=== PATIENT | male | born 1940 | race Caucasian/White ===

== ENCOUNTER 2017-11-05 17:27 | Inpatient (IN) | payer OTHER ==
[~2017-11-05] VITALS: Ht 175.3 cm; Wt 87.2 kg
[~2017-11-05 17:27] MED LIST: ALLOPURINOL100 MG PO; APRESOLINE25 MG PO; ASPIRIN81 M2 PO; ATIVAN0.5 MG PO; BENEPROTEIN227 GM PO; CALCITRIOL0.25 MCG PO; CELEXA40 MG PO; CLOBETASOL PROP60 G1 TP; CLONAZEPAM1 MG PO; COLCHICINE0.6 M1 PO; CYANOCOBALAM1000 MCG PO; DOXYCYCLINE HY100 MG PO; DUONEB 2.5-0.5 M3 ML PEP; FLEXERIL5 MG PO; FUROSEMIDE80 MG PO; GENTAMICIN SULF30 G1 TP; HUMALOG100 UNIT/2 SC; HYDRALAZINE HCL50 MG PO; IRON325 M1 PO; IRON325 MG PO; LANTUS 3 M100 UNITS1 SC; LIDOCAINE700 MG TD; LOPRESSOR100 M1 PO; LORAZEPAM0.5 MG PO; METOPROLOL PO; METOPROLOL TART50 MG PO; MULTIPLE VITAM1 EACH PO; NAMENDA5 MG PO; NEPHRO-VITE,1 TABLET PO; NITROSTAT0.4 MG SL; NORCO 5/3251 TABLET PO; NYSTATIN-TRIAMC15 GM TP; ONDANSETRON HCL4 MG PO; OXYCODONE HCL5 MG PO; OXYCONTIN10 MG PO; PANTOPRAZOLE SO40 MG PO; PLAVIX75 MG PO; TRAMADOL HCL50 MG PO; TRIAMCINOLONE A15 GM TP; VITAMIN B12-FO1 EACH PO; VITAMIN D31000 UNIT PO; VITAMIN D32000 UNI1 PO; VITAMIN D32000 UNIT PO
[2017-11-05 20:00] LABS: BASOPHIL (%) 0.1 % (0-1); EOSINOPHIL (%) 0.3 % (0-5); EOSINOPHIL COUNT 0.1 K/uL (0-0.3); HEMATOCRIT 31.2 % (38.0-50.0); HEMOGLOBIN 10.4 G/DL (12.5-16.6); IMMATURE GRANULOCYTE (%) 0.7 % (0.0-0.7); LYMPHOCYTE (%) 13.4 % (15-42); LYMPHOCYTE COUNT 2.2 K/uL (1.0-2.8); MCH 36.2 PG (29.0-34.0); MCHC 33.3 G/DL (30.0-36.0); MCV 108.7 FL (86-99); MONOCYTE (%) 5.1 % (3-12); MONOCYTE COUNT 0.8 K/uL (0-0.8); NEUTROPHIL (%) 80.4 % (45-76); NRBC (%) 0.2 /100 WBC (0-0); PLATELET COUNT 202 K/uL (156-360); RBC DIS.WIDTH-CV 18.2 % (11.8-14.6); RBC DIS.WIDTH-SD 72.2 % (39-53); RED BLOOD COUNT 2.87 M/uL (4.00-5.50); WHITE BLOOD COUNT 16.2 K/uL (4.1-10.2)
[2017-11-05 20:14] LABS: CHLORIDE 105 mEq/L (99-109); POTASSIUM 5.3 mEq/L (3.7-5.4); SODIUM 139 mEq/L (136-147)
[2017-11-05 20:16] LABS: GLUCOSE 113 mg/dL (70-99)
[2017-11-05 20:19] LABS: CREATININE 5.5 mg/dL (0.6-1.3); GFR ESTIMATE (CALCULATED) 11 mL/min/ (58.99-99999); SERUM ETHYL ALCOHOL < 10 mg/dL
[2017-11-05 20:20] LABS: UREA NITROGEN (BUN) 47 mg/dL (9-23)
[2017-11-05] MEDS ORDERED: IMDUR60 MG PO (21:50)
[2017-11-05] MEDS ORDERED: FLONASE16 G1 BOTH NARES (21:51)
[2017-11-05] MEDS ORDERED: CALCITRIOL0.25 MCG PO (21:53)
[2017-11-05 22:14] LABS: ALBUMIN 3.6 g/dL (3.2-4.8)
[2017-11-05 22:15] LABS: INTER. NORMALIZED RATIO 1.1
[2017-11-05 22:17] LABS: TOTAL PROTEIN 6.1 g/dL (6.4-8.3)
[2017-11-05 22:19] LABS: TOTAL BILIRUBIN 0.5 mg/dL (0.0-1.0)
[2017-11-05 22:20] LABS: ALKALINE PHOSPHATASE 79 IU/L (3-129)
[2017-11-05 22:22] LABS: AST (GOT) 14 IU/L (2-34); DIRECT BILIRUBIN 0.2 mg/dL (0.0-0.3)
[2017-11-05 22:23] LABS: ALT (GPT) 9 IU/L (3-49)
[2017-11-05 22:25] LABS: TROP-I INTERPRETATION NEGATIVE; TROPONIN-I 0.26 ng/mL (0.0-0.30)
[2017-11-06] VITALS (7 sets, daily range): BP systolic 98–146; BP diastolic 53–67
[2017-11-06 03:47] LABS: TROP-I INTERPRETATION NEGATIVE; TROPONIN-I 0.24 ng/mL (0.0-0.30)
[2017-11-06 09:39] LABS: HEMATOCRIT 30.2 % (38.0-50.0); MCHC 33.1 G/DL (30.0-36.0); MCV 111.9 FL (86-99); NRBC (%) 0.2 /100 WBC (0-0); PLATELET COUNT 165 K/uL (156-360); RBC DIS.WIDTH-CV 18.2 % (11.8-14.6); RBC DIS.WIDTH-SD 73.6 % (39-53); WHITE BLOOD COUNT 8.6 K/uL (4.1-10.2)
[2017-11-06 09:59] LABS: TROP-I INTERPRETATION NEGATIVE; TROPONIN-I 0.24 ng/mL (0.0-0.30)
[2017-11-06 16:33] LABS: ALBUMIN 3.5 G/DL (3.2-4.8); CHLORIDE 106 MEQ/L (99-109); POTASSIUM 5.3 MEQ/L (3.7-5.4); SODIUM 140 MEQ/L (136-147)
[2017-11-06 16:39] LABS: CREATININE 6.3 MG/DL (0.6-1.3); GFR ESTIMATE (CALCULATED) 9 mL/min/ (58.99-99999); GLUCOSE 94 mg/dL (70-99); PHOSPHORUS 7.5 mg/dL (2.5-4.9); UREA NITROGEN (BUN) 51 mg/dL (9-23)
[2017-11-07 01:36] LABS: APPEARANCE CLEAR ((CLEAR)); COLOR YELLOW ((YELLOW)); LEUKOCYTES NEGATIVE; NITRITE NEGATIVE
[2017-11-07 01:37] LABS: BILIRUBIN NEGATIVE; BLOOD NEGATIVE; GLUCOSE (STRIP) NEGATIVE; KETONES NEGATIVE; PH, URINE 6 (5-8); PROTEIN (STRIP) 300; UROBILINOGEN 0.2 MG/DL (0.2-1.0)
[2017-11-07 01:45] VITALS: BP 135/69
[2017-11-07 02:04] LABS: BACTERIA NONE SEEN /HPF; EPITHELIAL CELLS RARE /HPF; MUCUS NONE SEEN /LPF; RED BLOOD CELLS NONE SEEN /HPF (0-5); UCUL ADDED? NO; WHITE BLOOD CELLS RARE /HPF (0-5)
[2017-11-07 02:39] VITALS: BP 139/56
[2017-11-07 05:28] LABS: HEMATOCRIT 31.5 % (38.0-50.0); HEMOGLOBIN 10.3 G/DL (12.5-16.6); MCH 36.4 PG (29.0-34.0); MCHC 32.7 G/DL (30.0-36.0); MCV 111.3 FL (86-99); NRBC (%) 0.5 /100 WBC (0-0); PLATELET COUNT 170 K/uL (156-360); RBC DIS.WIDTH-SD 74.8 % (39-53); RED BLOOD COUNT 2.83 M/uL (4.00-5.50); WHITE BLOOD COUNT 10.6 K/uL (4.1-10.2)
[2017-11-07 05:56] LABS: ALBUMIN 3.6 G/DL (3.2-4.8); CHLORIDE 102 MEQ/L (99-109); CREATININE 6.6 MG/DL (0.6-1.3); GFR ESTIMATE (CALCULATED) 9 mL/min/ (58.99-99999); GLUCOSE 135 mg/dL (70-99); IRON 33 MCG/DL (35-150); PHOSPHORUS 7.3 mg/dL (2.5-4.9); POTASSIUM 4.9 MEQ/L (3.7-5.4); SODIUM 139 MEQ/L (136-147); TRANSFERRIN (TIBC) 144.6 mg/dL (215-380); TRANSFERRIN SATUR. 23 % (20-55); UREA NITROGEN (BUN) 54 mg/dL (9-23)
[2017-11-07 08:05] VITALS: BP 124/58
[2017-11-07 10:53] LABS: HEMATOCRIT 30.5 % (38.0-50.0); HEMOGLOBIN 9.9 G/DL (12.5-16.6); MCH 36.1 PG (29.0-34.0); MCHC 32.5 G/DL (30.0-36.0); MCV 111.3 FL (86-99); NRBC (%) 0.2 /100 WBC (0-0); PLATELET COUNT 162 K/uL (156-360); RBC DIS.WIDTH-SD 73.8 % (39-53); RED BLOOD COUNT 2.74 M/uL (4.00-5.50); WHITE BLOOD COUNT 21.2 K/uL (4.1-10.2)
[2017-11-07 13:20] VITALS: BP 114/55
[2017-11-07 15:50] VITALS: BP 112/55
[2017-11-07 19:28] VITALS: BP 107/55
[2017-11-08] VITALS (22 sets, daily range): BP systolic 63–103; BP diastolic 34–58
[2017-11-08 06:05] LABS: HEMATOCRIT 27.8 % (38.0-50.0); HEMOGLOBIN 9.3 G/DL (12.5-16.6); MCH 36.3 PG (29.0-34.0); MCHC 33.5 G/DL (30.0-36.0); MCV 108.6 FL (86-99); NRBC (%) 0.4 /100 WBC (0-0); PLATELET COUNT 176 K/uL (156-360); RBC DIS.WIDTH-SD 71.3 % (39-53); RED BLOOD COUNT 2.56 M/uL (4.00-5.50); WHITE BLOOD COUNT 17.3 K/uL (4.1-10.2)
[2017-11-08 06:17] LABS: ALBUMIN 3.3 G/DL (3.2-4.8); CHLORIDE 99 MEQ/L (99-109); CREATININE 7.4 MG/DL (0.6-1.3); GFR ESTIMATE (CALCULATED) 8 mL/min/ (58.99-99999); GLUCOSE 179 mg/dL (70-99); PHOSPHORUS 8.2 mg/dL (2.5-4.9); POTASSIUM 4.7 MEQ/L (3.7-5.4); SODIUM 140 MEQ/L (136-147); UREA NITROGEN (BUN) 63 mg/dL (9-23)
[2017-11-08 06:24] LABS: TROP-I INTERPRETATION POSITIVE; TROPONIN-I 17.15 ng/mL (0.0-0.30)
[2017-11-08 10:41] LABS: TROPONIN-I 19.35 ng/mL (0.0-0.30)
[2017-11-08 10:42] LABS: TROP-I INTERPRETATION POSITIVE
[2017-11-08 14:21] LABS: TROP-I INTERPRETATION POSITIVE; TROPONIN-I 19.72 ng/mL (0.0-0.30)
[2017-11-08 16:40] LABS: TROP-I INTERPRETATION POSITIVE; TROPONIN-I 18.94 ng/mL (0.0-0.30)
[2017-11-08 21:04] LABS: BASOPHIL (%) 0.1 % (0-1); EOSINOPHIL (%) 0.1 % (0-5); LYMPHOCYTE (%) 9.3 % (15-42); LYMPHOCYTE COUNT 1.3 K/uL (1.0-2.8); MCH 35.4 PG (29.0-34.0); MCV 110.6 FL (86-99); MONOCYTE (%) 5.8 % (3-12); MONOCYTE COUNT 0.8 K/uL (0-0.8); NEUTROPHIL (%) 83.7 % (45-76); PLATELET COUNT 159 K/uL (156-360); RBC DIS.WIDTH-CV 18.7 % (11.8-14.6); RBC DIS.WIDTH-SD 75.2 % (39-53); RED BLOOD COUNT 2.26 M/uL (4.00-5.50); WHITE BLOOD COUNT 14.3 K/uL (4.1-10.2)
[2017-11-08 21:47] LABS: TROP-I INTERPRETATION POSITIVE; TROPONIN-I 20.79 ng/mL (0.0-0.30)
[2017-11-09] VITALS (30 sets, daily range): BP systolic 79–120; BP diastolic 40–74
[2017-11-09 03:55] LABS: HEMATOCRIT 23.6 % (38.0-50.0); HEMOGLOBIN 7.8 G/DL (12.5-16.6); MCH 36.3 PG (29.0-34.0); MCHC 33.1 G/DL (30.0-36.0); MCV 109.8 FL (86-99); NRBC (%) 0.9 /100 WBC (0-0); PLATELET COUNT 166 K/uL (156-360); RBC DIS.WIDTH-CV 18.3 % (11.8-14.6); RBC DIS.WIDTH-SD 73.1 % (39-53); RED BLOOD COUNT 2.15 M/uL (4.00-5.50); WHITE BLOOD COUNT 16.4 K/uL (4.1-10.2)
[2017-11-09 04:17] LABS: TROP-I INTERPRETATION POSITIVE
[2017-11-09 04:19] LABS: TROPONIN-I 20.38 ng/mL (0.0-0.30)
[2017-11-09 15:35] LABS: TROP-I INTERPRETATION POSITIVE; TROPONIN-I 28.18 ng/mL (0.0-0.30)
[2017-11-09 15:46] LABS: HEMOGLOBIN 8.1 G/DL (12.5-16.6); MCH 34.8 PG (29.0-34.0); MCHC 32.4 G/DL (30.0-36.0); MCV 107.3 FL (86-99); NRBC (%) 0.7 /100 WBC (0-0); PLATELET COUNT 121 K/uL (156-360); RBC DIS.WIDTH-CV 20.8 % (11.8-14.6); RBC DIS.WIDTH-SD 80.1 % (39-53); RED BLOOD COUNT 2.33 M/uL (4.00-5.50); WHITE BLOOD COUNT 10.9 K/uL (4.1-10.2)
[2017-11-09 15:56] LABS: ALBUMIN 2.9 G/DL (3.2-4.8); ALKALINE PHOSPHATASE 90 IU/L (3-129); ALT (GPT) 155 IU/L (3-49); AST (GOT) 798 IU/L (2-34); CHLORIDE 102 MEQ/L (99-109); CREATININE 8.2 MG/DL (0.6-1.3); GFR ESTIMATE (CALCULATED) 7 mL/min/ (58.99-99999); GLUCOSE 148 mg/dL (70-99); MAGNESIUM 1.7 mg/dl (1.3-2.7); POTASSIUM 5.6 MEQ/L (3.7-5.4); SODIUM 137 MEQ/L (136-147); TOTAL PROTEIN 4.9 G/DL (6.4-8.3); UREA NITROGEN (BUN) 79 mg/dL (9-23)
[2017-11-09 15:57] LABS: HIGH-SENS C-REACTIVE PROTEIN > 8.00 MG/DL (0.02-0.20)
[2017-11-09 19:28] LABS: TROP-I INTERPRETATION POSITIVE; TROPONIN-I 29.31 ng/mL (0.0-0.30)
[2017-11-10] VITALS (35 sets, daily range): BP systolic 72–123; BP diastolic 40–67
[2017-11-10 00:59] LABS: TROP-I INTERPRETATION POSITIVE
[2017-11-10 01:03] LABS: TROPONIN-I 28.87 ng/mL (0.0-0.30)
[2017-11-10 01:34] LABS: HEMATOCRIT 23.8 % (38.0-50.0); HEMOGLOBIN 8.2 G/DL (12.5-16.6); MCV 103.9 FL (86-99)
[2017-11-10 07:54] LABS: COMMENTS - BLOOD GASES A+C+; DEVICE NC; MECHANICAL RATE 22 resp/min; O2 FLOW 4 L/MIN; PCO2 34 mm Hg (35-45); PO2 92 mm Hg (80-100); SITE LR
[2017-11-10 07:55] LABS: BASE EXCESS -9.4 mEq/L (-3 to +3); BICARBONATE 16.3 mEq/L (22-26); CARBOXY HGB 2.4 % (0-5); METHEMOGLOBIN 1.5 % (0-1.5); pH 7.29 (7.35-7.45)
[2017-11-10 08:30] LABS: HEMOGLOBIN 8.8 G/DL (12.5-16.6); MCH 33.6 PG (29.0-34.0); MCHC 32.6 G/DL (30.0-36.0); MCV 103.1 FL (86-99); NRBC (%) 1.4 /100 WBC (0-0); PLATELET COUNT 116 K/uL (156-360); RBC DIS.WIDTH-CV 22.6 % (11.8-14.6); RBC DIS.WIDTH-SD 83.7 % (39-53); RED BLOOD COUNT 2.62 M/uL (4.00-5.50)
[2017-11-10 08:35] LABS: INTER. NORMALIZED RATIO 1.4
[2017-11-10 08:37] LABS: PTT 60.5 SEC (25-37)
[2017-11-10 08:38] LABS: BASOPHIL (%) 0.2 % (0-1); EOSINOPHIL (%) 0.5 % (0-5); EOSINOPHIL COUNT 0.1 K/uL (0-0.3); IMMATURE GRANULOCYTE (%) 0.8 % (0.0-0.7); LYMPHOCYTE (%) 12.3 % (15-42); LYMPHOCYTE COUNT 1.2 K/uL (1.0-2.8); MONOCYTE (%) 5.6 % (3-12); MONOCYTE COUNT 0.6 K/uL (0-0.8); NEUTROPHIL (%) 80.6 % (45-76)
[2017-11-10 09:03] LABS: ALBUMIN 2.8 G/DL (3.2-4.8); ALT (GPT) 31 IU/L (3-49); AST (GOT) 698 IU/L (2-34); CHLORIDE 101 MEQ/L (99-109); CREATININE 8.8 MG/DL (0.6-1.3); GFR ESTIMATE (CALCULATED) 6 mL/min/ (58.99-99999); GLUCOSE 129 mg/dL (70-99); MAGNESIUM 1.7 mg/dl (1.3-2.7); POTASSIUM 5.1 MEQ/L (3.7-5.4); SODIUM 137 MEQ/L (136-147); TOTAL BILIRUBIN 1.2 MG/DL (0.0-1.0); UREA NITROGEN (BUN) 81 mg/dL (9-23)
[2017-11-10 09:09] LABS: HIGH-SENS C-REACTIVE PROTEIN > 8.00 MG/DL (0.02-0.20)
[2017-11-10 09:10] LABS: ALKALINE PHOSPHATASE 126 IU/L (3-129)
[2017-11-10 10:07] LABS: TROP-I INTERPRETATION POSITIVE; TROPONIN-I 27.87 ng/mL (0.0-0.30)
[2017-11-10 18:57] LABS: TYPE OF FLUID PD FLUID
[2017-11-10 19:30] LABS: FOLIC ACID (FOLATE) > 22.0 NG/ML (5.0-22.0)
[2017-11-10 19:52] LABS: APPEARANCE CLEAR, COLORLESS; BODY FLUID RBC'S 28 /MM^3 (0-100)
[2017-11-10 19:52] LABS: RETIC HGB EQUIVALENT 32.7 (28-36); RETICULOCYTE COUNT 1.5 % (0.5-1.8)
[2017-11-10 19:53] LABS: BODY FLUID WBC'S 34 /MM^3 (0-500)
[2017-11-10 21:02] LABS: BODY FLUID EOSINOPHILS 0 % (0-25); MONONUCLEAR WBC'S 52 %; POLYNUCLEAR WBC'S 48 % (0-25)
[2017-11-11] VITALS (8 sets, daily range): BP systolic 60–109; BP diastolic 37–61
[2017-11-11 05:28] LABS: HEMATOCRIT 29.7 % (38.0-50.0); HEMOGLOBIN 9.4 G/DL (12.5-16.6); MCH 34.1 PG (29.0-34.0); MCHC 31.6 G/DL (30.0-36.0); NRBC (%) 4.3 /100 WBC (0-0); PLATELET COUNT 127 K/uL (156-360); RBC DIS.WIDTH-CV 22.9 % (11.8-14.6); RBC DIS.WIDTH-SD 89.5 % (39-53); RED BLOOD COUNT 2.76 M/uL (4.00-5.50); WHITE BLOOD COUNT 27.1 K/uL (4.1-10.2)
[2017-11-11 05:29] LABS: MCV 107.6 FL (86-99)
[2017-11-11 05:47] LABS: ALBUMIN 2.9 G/DL (3.2-4.8); ALKALINE PHOSPHATASE 141 IU/L (3-129); CHLORIDE 95 MEQ/L (99-109); CREATININE 9.2 MG/DL (0.6-1.3); GFR ESTIMATE (CALCULATED) 6 mL/min/ (58.99-99999); SODIUM 132 MEQ/L (136-147); TOTAL PROTEIN 4.9 G/DL (6.4-8.3); UREA NITROGEN (BUN) 90 mg/dL (9-23); VANCOMYCIN, TROUGH 10.4 MCG/ML (10-20)
[2017-11-11 05:48] LABS: GLUCOSE 207 mg/dL (70-99)
[2017-11-11 05:49] LABS: ALT (GPT) 275 IU/L (3-49); TOTAL BILIRUBIN 0.9 MG/DL (0.0-1.0)
[2017-11-11 05:59] LABS: AST (GOT) 2073 IU/L (2-34)
[2017-11-11 06:08] LABS: HEMOGLOBIN 8.8 G/DL (12.5-16.6); MCH 34.5 PG (29.0-34.0); MCHC 32.6 G/DL (30.0-36.0); MCV 105.9 FL (86-99); NRBC (%) 10.7 /100 WBC (0-0); RBC DIS.WIDTH-CV 22.8 % (11.8-14.6); RBC DIS.WIDTH-SD 88.2 % (39-53); RED BLOOD COUNT 2.55 M/uL (4.00-5.50); WHITE BLOOD COUNT 24.4 K/uL (4.1-10.2)
[2017-11-11 06:12] LABS: ABS NEUTROPHIL COUNT 22.2; ANISOCYTOSIS 2+; ATYPICAL LYMPHOCYTE 1.8 %; BAND NEUTROPHILS 2.7 % (0-8.0); BASOPHILS 0.9 %; BURR CELLS 2+; EOSINOPHIL ABS CT 0; GIANT PLATELETS 1+; LYMPHOCYTES 3.7 % (15.0-45.0); MACROCYTES 2+; MONOCYTES 8.2 % (0-9.0); MYELOCYTES 3.6 %; NUCLEATED RBC'S 6.4; PLAT.SUFFICIENCY DECREASED; POIKILOCYTOSIS 2+; POLYCHROMASIA 3+; SEG.NEUTROPHILS 79.1 % (46.0-76.0)
[2017-11-11 06:14] LABS: INTER. NORMALIZED RATIO 2.2
[2017-11-11 06:17] LABS: PTT 76.9 SEC (25-37)
[2017-11-11 06:19] LABS: CHLORIDE 98 mEq/L (99-109)
[2017-11-11 06:21] LABS: GLUCOSE 164 mg/dL (70-99)
[2017-11-11 06:22] LABS: SODIUM 142 mEq/L (136-147)
[2017-11-11 06:25] LABS: GFR ESTIMATE (CALCULATED) 6 mL/min/ (58.99-99999); PHOSPHORUS 14.6 mg/dL (2.5-4.9)
[2017-11-11 06:26] LABS: UREA NITROGEN (BUN) 83 mg/dL (9-23)
[2017-11-11 06:28] LABS: CARBOXY HGB 1.5 % (0-5); METHEMOGLOBIN 1.1 % (0-1.5); O2 SATURATION (CALCULATED) 99.8 % (95-99); PCO2 54 mm Hg (35-45); PO2 217 mm Hg (80-100); pH 6.91 (7.35-7.45)
[2017-11-11 06:29] LABS: BASE EXCESS -21.3 mEq/L (-3 to +3); BICARBONATE 10.8 mEq/L (22-26); DEVICE RES BAG; FI02 100 %; SITE LB
[2017-11-11 06:34] LABS: TROP-I INTERPRETATION POSITIVE; TROPONIN-I 16.28 ng/mL (0.0-0.30)
[2017-11-11 06:36] LABS: POTASSIUM 6.8 mEq/L (3.7-5.4)
[2017-11-11 07:03] LABS: ABS NEUTROPHIL COUNT 19.9; ANISOCYTOSIS 2+; BAND NEUTROPHILS 6.6 % (0-8.0); BURR CELLS 1+; EOSINOPHIL ABS CT 0.1; EOSINOPHILS 0.4 % (0-5.0); LYMPHOCYTES 10.9 % (15.0-45.0); MACROCYTES 2+; METAMYELOCYTES 1.3 %; MONOCYTES 5.3 % (0-9.0); MYELOCYTES 0.4 %; NUCLEATED RBC'S 10.9; OVALOCYTES 1+; PLAT.SUFFICIENCY DECREASED; POIKILOCYTOSIS 2+; POLYCHROMASIA 2+; SEG.NEUTROPHILS 75.1 % (46.0-76.0)
[2017-11-11 07:05] LABS: PLATELET COUNT UNABLE TO REPORT K/uL (156-360)
== END 2017-11-11 06:37 | DRG 480 ==
LOC: EME 17:27 → ENRESERV 21:26 → 4EAST 21:26 → EDOF 21:26 → 4WEST 21:26 → ENRESERV 21:59 → 4EAST 11-06 01:25 → ENRESERV 11-08 16:56 → 4WEST 11-08 16:58
PROVIDERS: Emergency Medicine; Family Medicine; Internal Medicine; Internal Medicine Cardiovascular Disease; Internal Medicine Nephrology; Nurse Practitioner Family; Obstetrics & Gynecology; Orthopaedic Surgery; Physician Assistant; Physician Assistant Medical; Surgery
DX: S72.142A Displaced intertrochanteric fracture of left femur, initial encounter for closed fracture (principal); W19.XXXA Unspecified fall, initial encounter; I97.191 Other postprocedural cardiac functional disturbances following other surgery; Y83.8 Other surgical procedures as the cause of abnormal reaction of the patient, or of later complication, without mention of misadventure at the time of the procedure; I21.4 Non-ST elevation (NSTEMI) myocardial infarction; I46.9 Cardiac arrest, cause unspecified; K55.059 Acute (reversible) ischemia of intestine, part and extent unspecified; G25.3 Myoclonus; I49.01 Ventricular fibrillation; E87.2 Acidosis; E87.5 Hyperkalemia; J18.9 Pneumonia, unspecified organism; I25.82 Chronic total occlusion of coronary artery; I27.20 Pulmonary hypertension, unspecified; I08.0 Rheumatic disorders of both mitral and aortic valves; I13.2 Hypertensive heart and chronic kidney disease with heart failure and with stage 5 chronic kidney disease, or end stage renal disease; N18.6 End stage renal disease; I50.9 Heart failure, unspecified; J96.11 Chronic respiratory failure with hypoxia; I47.2 Ventricular tachycardia; I48.0 Paroxysmal atrial fibrillation; E11.22 Type 2 diabetes mellitus with diabetic chronic kidney disease; E11.43 Type 2 diabetes mellitus with diabetic autonomic (poly)neuropathy; K31.84 Gastroparesis; E11.42 Type 2 diabetes mellitus with diabetic polyneuropathy; E11.51 Type 2 diabetes mellitus with diabetic peripheral angiopathy without gangrene; I25.10 Atherosclerotic heart disease of native coronary artery without angina pectoris; J44.9 Chronic obstructive pulmonary disease, unspecified; D63.1 Anemia in chronic kidney disease; D72.829 Elevated white blood cell count, unspecified; Z99.81 Dependence on supplemental oxygen; Z99.2 Dependence on renal dialysis; K27.9 Peptic ulcer, site unspecified, unspecified as acute or chronic, without hemorrhage or perforation; K21.9 Gastro-esophageal reflux disease without esophagitis; Q21.0 Ventricular septal defect; R53.1 Weakness; E78.5 Hyperlipidemia, unspecified; F03.90 Unspecified dementia, unspecified severity, without behavioral disturbance, psychotic disturbance, mood disturbance, and anxiety; F41.1 Generalized anxiety disorder; I25.2 Old myocardial infarction; N40.0 Benign prostatic hyperplasia without lower urinary tract symptoms; F32.9 Major depressive disorder, single episode, unspecified; G89.29 Other chronic pain; M54.5 Low back pain; M10.9 Gout, unspecified; M25.569 Pain in unspecified knee; Z79.4 Long term (current) use of insulin; Z95.5 Presence of coronary angioplasty implant and graft; Z87.891 Personal history of nicotine dependence
CPT/HCPCS: 36600; 70450; 71045; 72125; 72192; 73502; 73552; 73564; 73721; 74177; 76000; 80048; 80048 91; 80053; 80069; 80076; 80202; 81003; 82330; 82607; 82746; 82803; 82948; 83090 90; 83540; 83605; 83735; 83880; 83921 90; 84100; 84145 90; 84443; 84466; 84484; 85014; 85018; 85025; 85025 91; 85027; 85046; 85610; 85730; 86141; 86850; 86900; 86901; 86920; 87070; 87075; 87205; 87641; 89051; 93005; 93306; 93308; 93971; 94002; 94640; 94760; 94799; 99281; 99285; C1713; C1751; C1769; G0480; J0131; J0461; J0690; J1170; J1265; J1644; J1815; J2060; J2270; J2405; J2543; J2710; J3010; J3370; J7030; J7040; J7050; J7643; P9016; P9045; S0020